=== PATIENT | male | born 1970 ===

== ENCOUNTER 2019-10-22 09:32 | Inpatient (IN) | payer OTHER ==
[~2019-10-22] VITALS: Ht 162.6 cm; Wt 95.0 kg
[~2019-10-22 09:32] MED LIST: ACIDOPHILUS LA1 EACH PO; AMLODIPINE BESYL5 MG PO; AVAPRO150 MG PO; CLEOCIN HCL300 MG PO; GLYBURIDE1.25 MG; METFORMIN HCL850 MG; METOPROLOL TART50 MG PO; PANTOPRAZOLE SO40 MG PO; TRAM1TAB98 PO
[2019-10-22] MEDS ORDERED: COZAAR100 MG (09:43)
[2019-10-22] MEDS ORDERED: PLAVIX75 MG (09:43)
[2019-10-22] MEDS ORDERED: TOPROL XL100 M1 (09:44)
[2019-10-22] MEDS ORDERED: AZOR 10-20 MG1 EACH (09:45)
[2019-10-22] MEDS ORDERED: ASPIR 8181 MG (09:45)
--- NOTE | 2019-10-22 09:47 | NUR ---
PTE ALERTA Y ORIENTADO X 3 ESFERAS, REFIERE DOLOR DE PECHO EKL C
--- NOTE | 2019-10-22 09:49 | NUR ---
PTE ALERTA Y ORIENTADO X 3 ESFERAS, REFIERE DOLOR DE PECHO EL CUAL LO DESCRIBE ANTHONY PUNZANTE DESDE LAS 5 AM. B/P MANUAL 200/130. SE REALIZA EKG, SE PRESENTA A DR DENNY Y SE UBICA EN AREA DE CHEST PAIN CONECTADO A MONITOR CARDIACO Y OXIMETRIA DE PULSO.
--- NOTE | 2019-10-22 10:32 | NUR ---
PTE ES EVALUADO POR DR. DENNY QUIEN ORDENA TRATAMIENTO MEDICO. SE EDUCA A PTE SOBRE ORDENES MEDICAS Y REFIERE COMPRENDER. SE CANALIZA Y SE COLECTAN MUESTRAS DE LABORATORIO BAJO MEDIDAS ASEPTICAS. SE ADMINISTRA MEDICAMENTO OCTAVIO ORDEN MEDICA Y SE MANTIENE BAJO OBSERVACION POR CAMBIOS EN CONDICION. PTE CON TRIDIL @ 3ML/HR.
--- NOTE | 2019-10-22 11:07 | NUR ---
PTE CON BP MANUAL 180/120. SE AUMENTA RATE DE TRIDIL @ 5 ML/HR.
--- NOTE | 2019-10-22 12:27 | NUR ---
PTE PRESENTA BP MANUAL 170/125. SE AUMENTA RATE DE TRIDIL @ 7 ML/HR.
--- NOTE | 2019-10-22 15:17 | NUR ---
SE RECIBE APCIENTE ALERTA Y ORIENTADO X3 EN UNIDAD DE CHEST PAIN, CONECTADO A MONITOR CARDIACO Y OXIMETRO DE PULSO, CANALIZACION PATENTE POR PERIFERAL LT BAJANDO TRIDIL A 7 ML/HR, PACIENTE REFIRE DOLOR DE MIGNON Y AL MOMENTO PRECENTA BP EN 185/[address] DENNY QUIEN ORDENA ACETAMINOPHEN 1G Y QUE CONSULTARA CON INTERNITA TRATAMIENTO PARA LA HIPERTENSION, SE ORIENTA A PACIENTE SOBRE ORDEN MEDICA SE EJECUTA ORDEN. SE MANTIENE EN OBSERVACION.
--- NOTE | 2019-10-22 16:29 | NUR ---
PACIENTE CONTINUA CON BP ELEVADA SE NOTIFICA A DR. HOOD QUIEN ORDENA ADMINISTRAR VOLO DE LABETALOL 20MG Y REALIZAR DEXTRO, SE ORIENTA A PACIENTE SOBRE ORDEN MEDICA SE EJECUTA ORDEN, DEXTRO EN 202 MG/DL.
--- NOTE | 2019-10-22 19:11 | NUR ---
BP 140/100 MANUAL SE LE NOTIFICA AL DR. HOOD, EL CUAL ORDENA CANCELAR LABETADOL Y SE LE ADMINISTRA VASOTEC 1.25 MG IV, SE ORIENTA SOBRE MEDICAMENTO Y EL PORQUE DEL MISMO. CONTINUA CONECTADO A MONITOR CARDIACO Y REFIERE SENTIR MOLESTIA EN EL PECHO AL MOMENTO. SE MANTIENE EN OBSERVACION.
--- NOTE | 2019-10-22 21:07 | NUR ---
DR. SHAILA BAIN EVALUA A PACIENTE Y ORDENA ADMITIR A PISO DE MEDICINA CON TELEMETRIA, REALIZAR SONOGRAMA RENAL Y DOPPLER ECHO, ADMINITRAR MEDICAMENTOS PARA VIEYRA CONDICION,REALIZR MUETRAS DE TROPONINA Y CK, COLOCAR CANULA NASAL A 2 LT, CONSULTA CON CARDIOLOGIA, NEFROLOGIA Y EDOCRINOLOGIA, SE ORIENTA A PACIENTE SOBRE ORDEN MEDICA REFIERE ENTENDER, SE EJCUTA ORDEN. SE POSTEA TELEMETRIA CON JOSE MANUEL A LAS 8:49 PM.
== END 2019-10-29 12:50 | disposition designated cancer center or children's hospital (05) | DRG 291 ==
LOC: ER 09:32 → MEDI 20:20
PROVIDERS: ADMIT Internal Medicine
PROC: BT43ZZZ Ultrasonography of Bilateral Kidneys (ICD-10-PCS; principal; 2019-10-22)
PROC: B246ZZZ Ultrasonography of Right and Left Heart (ICD-10-PCS; 2019-10-22)
PROC: 4A12X4Z Monitoring of Cardiac Electrical Activity, External Approach (ICD-10-PCS; 2019-10-23)
PROC: C21G1ZZ Planar Nuclear Medicine Imaging of Myocardium using Technetium 99m (Tc-99m) (ICD-10-PCS; 2019-10-24)
PROC: B44 Imaging, Lower Arteries, Ultrasonography (ICD-10-PCS; 2019-10-24)
DX: I11.0 Hypertensive heart disease with heart failure (principal); J69.0 Pneumonitis due to inhalation of food and vomit; T17.898A Other foreign object in other parts of respiratory tract causing other injury, initial encounter; N17.8 Other acute kidney failure; E11.22 Type 2 diabetes mellitus with diabetic chronic kidney disease; I50.43 Acute on chronic combined systolic (congestive) and diastolic (congestive) heart failure; I13.0 Hypertensive heart and chronic kidney disease with heart failure and stage 1 through stage 4 chronic kidney disease, or unspecified chronic kidney disease; I70.1 Atherosclerosis of renal artery; I08.0 Rheumatic disorders of both mitral and aortic valves; E11.65 Type 2 diabetes mellitus with hyperglycemia; K80.80 Other cholelithiasis without obstruction; N18.2 Chronic kidney disease, stage 2 (mild); Z79.4 Long term (current) use of insulin